=== PATIENT | male | born 1995 | race Caucasian/White ===

== ENCOUNTER 2024-05-30 11:18 | Emergency (ER) | payer SELFPAY ==
--- OUTSIDE RECORDS SUMMARY | 2024-05-30 11:21 | XMS REPORT | Continuity of Care Document ---
Author Name Unknown Address [address] [facility] [address] [place] [address] [facility] Address [address] [facility] [address] [place] [address] Care Team Providers Care Software Systems Engineer Name Role Phone Tabatha Boston DO Attending Clinician [phone] Doctor Unassigned, [place] Attending Clinician U navailable Payers Payer Name Policy Type Policy Number Effective Date Expirati on Date Source [facility] [id number] 2018 00:00:00 Problems Condition Name Condition Details Condition Category Status Onset Date Resolution Date Last Treatment Date Treating Clinician Comments Source Pain in joint, forearm Pain in joint, forearm Disease Active 01-16 00:00: 00 [facility] Allergies, Adverse Reactions, Alerts Allergy Name Allergy Type Status Severity Reaction(s) Onset Date Inactive Date Treating Clinician Comments Source NO KNOWN ALLERGIE S Drug Class Active [facility] Social History Social Habit Start Date Stop Date Quantity Comments Source Exposure to SARS-CoV-2 (event) Not sure [facility] Alcohol intake 2011-01-23 00:00:00 2011-01-23 00:00:00 Current non-drinker of alcohol (finding) [facility] Sex Assigned At 1995 00:00:00 1995 00[birth year] [facility] Smoking Status Start Date Stop Date Source Never smoker [facility] Medications Ordered Medication Name Filled Medication Name Start Date Stop Date Current Medication? Ordering Clinician Indication Dosage Frequency Signature (SIG) Comments Components Source promethazin e-codeine 6.25-10 mg/5 mL syrup 07-26 00:00: 00 Yes [id number] 5mL Take 5 mL by mouth 4 (four) times daily as needed for Cough. [facility] hydrocodone -acetaminop hen (NORCO) 5-325 mg tablet 01-23 00:00: 00 Yes 1{tbl} Take 1-2 Tabs by mouth every 6 (six) hours as needed for Pain. [facility] Vital Signs Vital Name Observation Time Observation Value Comments S ource Systolic blood pressure 2020-11-21 12:17:00 161 mm[Hg] [facility] Diastolic blood pressure 2020-11-21 12:17:00 90 mm[Hg] [facility] Heart rate 2020-11-21 12:17:00 94 /min [facility] Body temperature 2020-11-21 12:17:00 37.06 [facility] Respiratory rate 2020-11-21 12:17:00 18 /min [facility] Body height 2020-11-21 12:17:[address] [facility] Body weight 2020-11-21 12:17:[address] [facility] BMI 2020-11-21 12:17:00 33.23 kg/m2 [facility] Oxygen saturation in Arterial blood by Pulse oximetry 2020-11-21 12:17:00 98 /min [facility] Systolic blood pressure 2020-11-21 12:17:00 161 mm[Hg] [facility] Diastolic blood pressure 2020-11-21 12:17:00 90 mm[Hg] [facility] Heart rate 2020-11-21 12:17:00 94 /min [facility] Body temperature 2020-11-21 12:17:00 37.06 [facility] Respiratory rate 2020-11-21 12:17:00 18 /min [facility] Body height 2020-11-21 12:17:[address] [facility] Body weight 2020-11-21 12:17:[address] [facility] BMI 2020-11-21 12:17:00 33.23 kg/m2 [facility] Oxygen saturation in Arterial blood by Pulse oximetry 2020-11-21 12:17:00 98 /min [facility] Procedures Procedure Date / Time Performed Performing Clinicia n Source NOTICE OF PRIVACY PRACTICES 2020-11-21 12:10:29 Doctor Unassigned, [place] [facility] Encounters Start Date/Time End Date/Time Encounter Type Admission Type Attending Clinicians Care Facility Care Department Encounter ID Source 2020-11-21 07:17:00 2020-11-21 08:25:00 Emergency Tabatha Boston [facility] [id number] 2020-11-21 07:17:00 2020-11-21 08:25:00 Emergency Tabatha Boston [facility] [id number] [facility] 2020-11-21 07:11:00 2020-11-21 07:11:00 Emergency X [facility] ERT [id number] [facility] 2020-11-21 00:00:00 2020-11-21 00:00:00 Orders Only Doctor Unassigned, [place] [facility] [id number] 2020-11-21 00:00:00 2020-11-21 00:00:00 Orders Only Doctor Unassigned, [place] [facility] [id number] [facility]
--- NOTE | 2024-05-30 12:51 | RAD REPORT ---
EXAM: Chest Pa And Lat (2 Views) HISTORY: COUGH COMPARISON: None. FINDINGS: LUNGS/PLEURA: The lungs are clear. No pleural effusions or pneumothorax. No pulmonary edema. MEDIASTINUM: The mediastinal silhouette is within normal limits. CARDIAC: The cardiac silhouette is within normal limits. UPPER ABDOMEN: No significant abnormality. BONES: No acute fracture. LINES/TUBES/OTHER: N/A IMPRESSION: No evidence of acute cardiopulmonary disease.
[2024-05-30 13:03] LABS: Absolute Eosinophils 0.1 K/uL (0-0.5); Absolute Lymphocytes (CBC) 0.3 K/uL (0.7-4.9); Absolute Monocytes 0.8 K/uL (0.1-1.3); Absolute Neutrophil 4.7 K/uL (1.8-8.0); Basophils % 0.4 % (0-1.3); Eosinophils % 1.4 % (0-4.4); Hematocrit 42.3 % (39.6-49.0); Lymphocytes % 4.9 % (15.3-44.8); MCH 29.3 pg (27.0-35.0); MCHC 33.1 g/dL (32.0-36.0); MCV 88.5 fL (80-100); MPV 8.9 fL (7.6-11.3); Monocytes % 14.2 % (3.3-12.3); Neutrophils % 79.1 % (41.7-73.7); Platelets 238 thou/uL (152-406); RBC Red Blood Cell Count 4.78 M/uL (4.33-5.43); Red Cell Distribution Width 13.2 % (12.1-15.2)
[2024-05-30 13:18] LABS: Albumin 4.2 g/dL (3.4-5.0); Albumin/Globulin Ratio 1.1 (1.1-1.8); Anion Gap 6.6 mEq/L (5.0-15.0); Bilirubin Direct 0.2 mg/dL (0-0.2); Bilirubin Indirect, Calculated 0.4 mg/dL (0.2-0.8); Bilirubin Total 0.6 mg/dL (0.2-1.0); Globulin 3.9 g/dL (2.3-3.5); Potassium 3.6 mEq/L (3.5-5.1); Protein, Total 8.1 g/dL (6.4-8.2)
[2024-05-30] MEDS ORDERED: ACETAMINOPHEN 500 MG TAB ONE (13:19)
[2024-05-30] MEDS ORDERED: NA CHLORIDE 0.9% 1,000 ML ONE ×2 (13:20→14:03)
[2024-05-30 13:24] LABS: SARS-CoV-2 Antigen CONTROL BLUE LINE VIS/BG OK; SARS-CoV-2 Antigen Rapid Res Negative (Negative)
[2024-05-30] MEDS ORDERED: IBUPROFEN 400 MG TAB ONE (14:10)
--- NOTE | 2024-05-30 15:11 | EDPHYS ---
Physician Documentation [facility] Name: Lola Andrews Age: 29 yrs Sex: Male : 1995 Arrival Date: 05/30/2024 Time: 11:18 Bed 11 Private MD: ED Physician Chapo Doherty HPI: 05/30 12:00 This 29 yrs old Male presents to ER via Ambulatory with complaints of Flu Symptoms. cp 12:00 The patient or guardian reports cough, that is constant, congestion, fever, body aches. cp 12:00 Onset: The symptoms/episode began/occurred 2 week(s) ago, and improved returned and cp worse 2 days ago. Associated signs and symptoms: Pertinent negatives: chest pain, diarrhea, vomiting. Severity of symptoms: in the emergency department the symptoms are unchanged despite home interventions. Historical: - Allergies: 11:59 No Known Allergies; iw - Home Meds: 11:59 None [Active]; iw - PMHx: 11:59 None; iw - PSHx: 11:59 None; iw - Immunization history:: Adult Immunizations up to date. - Infectious Disease History:: Denies. - Social history:: Smoking status: Patient denies any tobacco usage or history of. ROS: 12:05 Constitutional: Positive for body aches, chills, fever, cp 12:05 Eyes: Negative for injury, pain, redness, and discharge, cp 12:05 ENT: Positive for sore throat, Negative for drainage from ear(s), ear pain, difficulty swallowing, difficulty handling secretions, 12:05 Neck: Negative for pain with movement, pain at rest, stiffness, 12:05 Cardiovascular: Negative for chest pain, palpitations, 12:05 Respiratory: Positive for cough, "sounds productive", 12:05 Abdomen/GI: Negative for abdominal pain, vomiting, diarrhea, constipation, 12:05 Neuro: Positive for headache, Negative for altered mental status, 12:05 All other systems are negative, Exam: 12:10 Constitutional: The patient appears in no acute distress, alert, awake, non-toxic, well cp developed, well nourished, uncomfortable, 12:10 Head/Face: Normocephalic, atraumatic. cp 12:10 Eyes: Periorbital structures: appear normal, Conjunctiva: normal, no exudate, no injection, Sclera: no appreciated abnormality, Lids and lashes: appear normal, bilaterally, 12:10 ENT: External ear(s): are unremarkable, Ear canal(s): are normal, clear, TM's: dullness, bilaterally, Nose: is normal, Mouth: Lips: moist, Oral mucosa: moist, Posterior pharynx: Airway: no evidence of obstruction, patent, Tonsils: no enlargement, no exudate, erythema, that is mild, exudate, is not appreciated, 12:10 Neck: ROM/movement: is normal, is supple, no meningismus, no nuchal rigidity, 12:10 Chest/axilla: Inspection: normal, 12:10 Cardiovascular: Rate: tachycardic, Rhythm: regular, Edema: is not appreciated, JVD: is not appreciated, 12:10 Respiratory: the patient does not display signs of respiratory distress, Respirations: shallow respirations, that is mild, Breath sounds: bronchial sounds, that are mild, are heard diffusely, 12:10 Abdomen/GI: Inspection: abdomen appears normal, Palpation: abdomen is soft and non-tender, in all quadrants, 12:10 Back: CVA tenderness, is absent, 12:10 Neuro: Orientation: to person, place \\T\\ time. Mentation: is normal, Motor: moves all fours, strength is normal, Sensation: is normal, 13:17 ECG was reviewed by the Attending Physician. cp Vital Signs: 11:58 BP 108 / 72; Pulse 128; Resp 24; Temp 99.8(O); Pulse Ox 100% on R/A; Weight 108.86 kg; iw Height 6 ft. 0 in. ; Pain 5/10; 13:18 Pulse 130; Resp 20 S; Temp 103.1(O); Pulse Ox 100% on R/A; kc6 14:12 BP 115 / 87; Pulse 116; Resp 20 S; Temp 103(O); Pulse Ox 100% on R/A; kc6 14:57 BP 103 / 53; Pulse 105; Resp 17 S; Temp 101.2(O); Pulse Ox 96% on R/A; kc6 15:36 BP 108 / 60; Pulse 100; Resp 18 S; Pulse Ox 99% on R/A; kc6 11:58 Body Mass Index 32.55 (108.86 kg, 182.88 cm) iw 11:58 Pain Scale: Adult iw MDM: 12:01 Medical Screening Exam initiated cp 15:10 Data reviewed: vital signs, nurses notes, lab test result(s), radiologic studies, plain cp films, and as a result, I will discharge patient. 15:10 I considered the following discharge prescriptions or medication management in the emergency department Medications were administered in the Emergency Department. See MAR. Independent interpretation of the following test(s) in the Emergency Department EKG: See my EKG interpretation above. 12 12:03 Order name: Basic Metabolic Panel; Complete Time: 13:22 cp 05/30 12:03 Order name: CBC with Diff; Complete Time: 13:22 cp 05/30 12:03 Order name: LFT's; Complete Time: 13:22 cp 05/30 12:03 Order name: Magnesium; Complete Time: 13:22 cp 05/30 12:03 Order name: Influenza Screen (a \\T\\ B); Complete Time: 13:22 cp 05/30 12:03 Order name: SARS RAPID; Complete Time: 15:01 cp 05/30 12:03 Order name: Strep 12 13:22 Order name: Throat Culture EDMS 05/30 12:03 Order name: XRAY Chest Pa And Lat (2 Views); Complete Time: 13:22 cp 05/30 12:03 Order name: EKG; Complete Time: 12:03 cp 08 12:03 Order name: Cardiac monitoring; Complete Time: 13:18 cp 05/30 12:03 Order name: EKG - Nurse/Tech; Complete Time: 13:18 cp 05/30 12:03 Order name: IV Saline Lock; Complete Time: 12:55 cp 1208 12:03 Order name: Labs collected and sent; Complete Time: 12:55 cp 05/30 12:03 Order name: O2 Per Protocol; Complete Time: 12:55 cp 05/30 12:03 Order name: O2 Sat Monitoring; Complete Time: 12:55 cp EC:17 Rate is 125 beats/min. Rhythm is regular. CO interval is normal. QRS interval is cp normal. QT interval is normal. T waves are Inverted in leads III, aVR. Interpreted by me. Reviewed by me. Administered Medications: 13:23 Not Given (Physician Discretion): [id number] mg PO once cp 13:27 Drug: NS 0.9% IV 1000 ml IV at 1000 ml once; to be given as a bolus over 60 minutes kc6 Route: IV; Rate: 1000 ml; Site: right antecubital; 14:12 Follow up: Response: No adverse reaction; IV Status: Completed infusion; IV Intake: kc6 1000ml 13:27 Drug: Acetaminophen PO 1000 mg PO once Route: PO; kc6 14:11 Follow up: Response: No adverse reaction; Temperature is unchanged; Pain is decreased kc6 14:12 Drug: NS 0.9% IV 1000 ml IV at 1000 ml once; to be given as a bolus over 60 minutes kc6 Route: IV; Rate: 1000 ml; Site: right antecubital; 15:36 Follow up: Response: No adverse reaction; IV Status: Completed infusion; IV Intake: kc6 1000ml 14:17 Drug: Ibuprofen PO 800 mg PO once Route: PO; kc6 14:57 Follow up: Response: No adverse reaction; Temperature is decreased kc6 Disposition Summary: 05/30/24 15:11 Discharge Ordered Notes: Location: Home cp Problem: new cp Symptoms: have improved cp Condition: Stable cp Diagnosis - Influenza due to other identified influenza virus with other respiratory cp manifestations Followup: cp - With: Private Physician - When: 2 - 3 days - Reason: Worsening of condition Discharge Instructions: - Discharge Summary Sheet cp - Influenza, Adult cp Forms: - Medication Reconciliation Form cp - Antibiotic Education cp - Prescription Opioid Use cp - Patient Portal Instructions cp - Leadership Thank You Letter cp - Work release form kc6 Prescriptions: - Bromfed DM 2-30-10 mg/5 mL Oral syrup - administer 10 milliliter ORAL route every 6-8 hours; 240 milliliter; Refills: cp 0, Product Selection Permitted - Ibuprofen 800 mg Oral Tablet - take 1 tablet ORAL route every 8 hours As needed take with food; 30 tablet; cp Refills: 0, Product Selection Permitted - Zithromax Z-Larry 250 mg Oral Tablet - take 1 tablet ORAL route as directed for 5 days Day 1 - take two (2) tablets cp one time. Day 2, 3, 4 , 5 take one (1) tablet once daily.; 6 tablet; Refills: 0, Product Selection Permitted - Tamiflu 75 mg Oral capsule - take 1 tablet ORAL route every 12 hours for 5 days; 10 tablet; Refills: 0, cp Product Selection Permitted Signatures: Dispatcher [employer] Marcia Lara, RN RN Raheem Auguste PA PA cp Campbell, Kaitlyn RN RN kc6
--- NOTE | 2024-05-30 15:11 | ER ---
Nurse's Notes [facility] Name: Lola Andrews Age: 29 yrs Sex: Male : 1995 Arrival Date: 05/30/2024 Time: 11:18 Bed 11 Private MD: Diagnosis: Influenza due to other identified influenza virus with other respiratory manifestations Presentation: 05/30 11:58 Chief complaint: Cough, headache, body aches, and fever x 2 weeks, SOB x 2-3 days. iw Coronavirus screen: Client presents with at least one sign or symptom that may indicate coronavirus-19. Provider contacted for isolation considerations. Ebola Screen: No symptoms or risks identified at this time. Initial Sepsis Screen: Does the patient meet any 2 criteria? RR > 20 per min. HR > 90 bpm. Yes Does the patient have a suspected source of infection? No. Patient's initial sepsis screen is negative. Risk Assessment: Do you want to hurt yourself or someone else? Patient reports no desire to harm self or others. Onset of symptoms was April 2024. 11:58 Method Of Arrival: Ambulatory 11:58 Acuity: KAYODE 2 iw Historical: - Allergies: 11:59 No Known Allergies; iw - Home Meds: 11:59 None [Active]; iw - PMHx: 11:59 None; iw - PSHx: 11:59 None; iw - Immunization history:: Adult Immunizations up to date. - Infectious Disease History:: Denies. - Social history:: Smoking status: Patient denies any tobacco usage or history of. Screenin:19 [facility] ED Fall Risk Assessment (Adult) History of falling in the last 3 months, kc6 including since admission No falls in past 3 months (0 pts) Confusion or Disorientation No (0 pts) Intoxicated or Sedated No (0 pts) Impaired Gait No (0 pts) Mobility Assist Device Used No (0 pt) Altered Elimination No (0 pt) Score/Fall Risk Level 0 - 2 = Low Risk Oriented to surroundings, Maintained a safe environment. Abuse screen: Denies threats or abuse. Denies injuries from another. Nutritional screening: No deficits noted. Tuberculosis screening: No symptoms or risk factors identified. Assessment: 13:19 General: Appears in no apparent distress. comfortable, well groomed, well developed, kc6 Behavior is calm, cooperative, appropriate for age, Reports chills for 1-2 days, fever for 1-2 days, feeling ill for > 3 days, fatigue for >3 days. Neuro: Level of Consciousness is awake, alert, obeys commands, Oriented to person, place, time, situation, Appropriate for age Reports headache. Cardiovascular: Reports palpitations, shortness of breath, Denies chest pain, Capillary refill < 3 seconds Rhythm is sinus tachycardia. Respiratory: Airway is patent Trachea midline Respiratory effort is even, unlabored, Respiratory pattern is regular, symmetrical. GI: No signs and/or symptoms were reported involving the gastrointestinal system. : No signs and/or symptoms were reported regarding the genitourinary system. EENT: Reports nasal congestion. Derm: No signs and/or symptoms reported regarding the dermatologic system. Skin is intact, is healthy with good turgor, Skin is pink, warm \T\ dry. Musculoskeletal: No signs and/or symptoms reported regarding the musculoskeletal system. Circulation, motion, and sensation intact. Capillary refill < 3 seconds, Range of motion: intact in all extremities. 14:55 Reassessment: Patient appears in no apparent distress at this time. No changes from kc6 previously documented assessment. Patient and/or family updated on plan of care and expected duration. Pain level reassessed. Patient is alert, oriented x 3, equal unlabored respirations, skin warm/dry/pink. 15:36 Reassessment: Patient appears in no apparent distress at this time. No changes from kc6 previously documented assessment. Patient and/or family updated on plan of care and expected duration. Pain level reassessed. Patient is alert, oriented x 3, equal unlabored respirations, skin warm/dry/pink. Patient states feeling better. Patient states symptoms have improved. Vital Signs: 11:58 BP 108 / 72; Pulse 128; Resp 24; Temp 99.8(O); Pulse Ox 100% on R/A; Weight 108.86 kg; iw Height 6 ft. 0 in. ; Pain 5/10; 13:18 Pulse 130; Resp 20 S; Temp 103.1(O); Pulse Ox 100% on R/A; kc6 14:12 BP 115 / 87; Pulse 116; Resp 20 S; Temp 103(O); Pulse Ox 100% on R/A; kc6 14:57 BP 103 / 53; Pulse 105; Resp 17 S; Temp 101.2(O); Pulse Ox 96% on R/A; kc6 15:36 BP 108 / 60; Pulse 100; Resp 18 S; Pulse Ox 99% on R/A; kc6 11:58 Body Mass Index 32.55 (108.86 kg, 182.88 cm) iw 11:58 Pain Scale: Adult iw ED Course: 11:21 Patient arrived in ED. mg5 11:37 Raheem Tse PA is PHCP. cp 11:38 Chapo Doherty MD is Attending Physician. cp 11:59 Triage completed. iw 12:00 Arm band placed on. iw 12:24 XRAY Chest Pa And Lat (2 Views) In Process Unspecified. EDMS 12:55 Kisha Waldron, ANGELLA is Primary Nurse. kc6 13:18 Patient has correct armband on for positive identification. Placed in gown. Bed in low kc6 position. Call light in reach. Side rails up X 1. risk and insurance consultant on. Pulse ox on. NIBP on. Door closed. Noise minimized. Lights dimmed. Warm blanket given. Pillow given. Diet: Patient given water. Tolerated well. 13:18 Inserted saline lock: 20 gauge in right antecubital area, using aseptic technique. kc6 Blood collected. Flushed with 10 mL NS. 15:36 No provider procedures requiring assistance completed. IV discontinued, intact, kc6 bleeding controlled, No redness/swelling at site. Pressure dressing applied. Administered Medications: 13:23 Not Given (Physician Discretion): mg PO once cp 13:27 Drug: NS 0.9% IV 1000 ml IV at 1000 ml once; to be given as a bolus over 60 minutes kc6 Route: IV; Rate: 1000 ml; Site: right antecubital; 14:12 Follow up: Response: No adverse reaction; IV Status: Completed infusion; IV Intake: kc6 1000ml 13:27 Drug: Acetaminophen PO 1000 mg PO once Route: PO; kc6 14:11 Follow up: Response: No adverse reaction; Temperature is unchanged; Pain is decreased kc6 14:12 Drug: NS 0.9% IV 1000 ml IV at 1000 ml once; to be given as a bolus over 60 minutes kc6 Route: IV; Rate: 1000 ml; Site: right antecubital; 15:36 Follow up: Response: No adverse reaction; IV Status: Completed infusion; IV Intake: kc6 1000ml 14:17 Drug: Ibuprofen PO 800 mg PO once Route: PO; kc6 14:57 Follow up: Response: No adverse reaction; Temperature is decreased kc6 Medication: 15:37 VIS not applicable for this client. kc6 Intake: 14:12 IV: 1000ml; Total: 1000ml. kc6 15:36 IV: 1000ml; Total: 2000ml. kc6 Outcome: 15:11 Discharge ordered by MD. cp 15:36 Discharged to home ambulatory, kc6 15:36 Condition: improved 15:36 Discharge instructions given to patient, Instructed on discharge instructions, follow up and referral plans. medication usage, Demonstrated understanding of instructions, follow-up care, medications, Prescriptions given X 4, 15:37 Patient left the ED. kc6 Signatures: Dispatcher [employer] Marcia Lara, RN RN Raheem Auguste PA PA cp Campbell, Kaitlyn, RN RN kc6 Maral Pineda mg5
[2024-05-30 18:00] VITALS: TEMP 101.2
[2024-05-30 18:01] VITALS: BP 108/60; O2SAT 99
== END 2024-05-30 15:37 | disposition home or self-care (01) ==
LOC: ER 11:18
DX: J10.1 Influenza due to other identified influenza virus with other respiratory manifestations (principal); Z11.52 Encounter for screening for COVID-19
CPT/HCPCS: 36415; 71046; 80048; 80076; 83735; 85025; 87070; 87081; 87804; 87811; 96360; 96361; 99285; J7030